=== PATIENT | male | born 1940 | race Caucasian/White ===

== ENCOUNTER → 2017-08-19 | Outpatient (CLI) | payer MEDICARE, OTHER ==
[~2017-08-19] MED LIST: ASMANEX TW0.22 MG/A1 IH; ASPIRIN325 MG PO; AUGMENTIN1 TA2 PO; AZITHROMYCIN250 M1 PO; CEFDINIR 300MG300 MG PO; CHEWABLE ASPIRI81 MG PO; CIPRO 500MG TA500 MG PO; COLESTID1 GM PO; CRESTOR40 MG PO; DUONEB 3 MG/3 ML3 ML IH; FORADIL AERO0.012 MG IH; HYDROCHLOROTHIA25 M1 PO; LEVAQUIN 750 M750 MG PO; LEVAQUIN500 MG PO; LISINOPRIL 20MG20 MG PO; METOPROLOL TAR100 MG PO; METOPROLOL100 MG PO; NIACIN1000 MG PO; NIACIN500 MG PO; PLAVIX75 MG PO; PREDNICOT20 MG PO; PREDNISONE 10MG10 MG PO; RANEXA500 M1 PO; RANEXA500 MG PO; RANITIDINE HCL300 M1 PO; SIMVASTATIN80 MG PO; SPIRIVA HA1 PUFF/INH IH; SPIRIVA18 MCG IH; SYMBICORT1 AER IH; TIOTROPIUM BRO18 MCG IH; VIAGRA100 MG PO; ZOCOR40 MG PO
== END ==
LOC: CARL-LAB 11:51
DX: J44.9 Chronic obstructive pulmonary disease, unspecified (principal)

== ENCOUNTER → 2017-08-22 | Outpatient (CLI) | payer MEDICARE, OTHER ==
[2017-08-22 14:00] LABS: BUN 18 mg/dL (7-18)
[2017-08-22 14:03] LABS: GFR (ESTIMATED) 65 ML/MIN (>60)
[2017-08-22 15:06] LABS: HEMOGLOBIN 14.2 g/dL (14.1-18.0); LYMPH # 1.7 K/mm3 (0.7-4.5); LYMPH % 18.3 % (10-50)
== END ==
LOC: CARL-LAB 07:02
PROVIDERS: Internal Medicine Adolescent Medicine
DX: E78.2 Mixed hyperlipidemia (principal); I25.10 Atherosclerotic heart disease of native coronary artery without angina pectoris